=== PATIENT | female | born 1965 | race Two or more races ===

== ENCOUNTER 2018-10-22 08:57 | Emergency (ER) | payer OTHER ==
[~2018-10-22] VITALS: Ht 165.1 cm; Wt 56.7 kg
[~2018-10-22 08:57] MED LIST: LOVENOX40 MG/0.4 SQ; ORPH100T PO; PRENATAL1 TAB PO
[2018-10-22] MEDS ORDERED: SYNTHROID50 MCG (09:21)
[2018-10-22] MEDS ORDERED: MECLIZINE HCL25 MG PO (13:44)
== END 2018-10-22 14:09 | disposition home or self-care (01) ==
LOC: ER 08:57
DX: R11.11 Vomiting without nausea (principal); R42 Dizziness and giddiness

== ENCOUNTER 2019-02-24 08:51 | Outpatient (CLI) | payer OTHER ==
[~2019-02-24 08:51] MED LIST changes: +MECLIZINE HCL25 MG PO; +SYNTHROID50 MCG
== END 2019-02-24 08:53 | disposition home or self-care (01) ==
LOC: SONOGRAMA 08:51
DX: E04.1 Nontoxic single thyroid nodule (principal)

== ENCOUNTER 2019-08-18 08:19 | Emergency (ER) | payer OTHER ==
[~2019-08-18] VITALS: Ht 165.1 cm; Wt 59.9 kg
[2019-08-18] MEDS ORDERED: KETO10TA2 PO (10:46)
== END 2019-08-18 11:11 | disposition home or self-care (01) ==
LOC: ER 08:19
DX: S93.691A Other sprain of right foot, initial encounter (principal); X50.9XXA Other and unspecified overexertion or strenuous movements or postures, initial encounter; Y93.89 Activity, other specified; Y92.89 Other specified places as the place of occurrence of the external cause; Y99.8 Other external cause status

== ENCOUNTER 2021-10-21 07:42 | Emergency (ER) | payer OTHER ==
[~2021-10-21] VITALS: Ht 165.1 cm; Wt 59.0 kg
[~2021-10-21 07:42] MED LIST changes: +KETO10TA2 PO
[2021-10-21] MEDS ORDERED: SYNTHROID50 MCG (08:03)
[2021-10-21] MEDS ORDERED: SYNTHROID50 MCG PO ×3 (08:03→08:08)
== END 2021-10-21 10:54 | disposition home or self-care (01) ==
LOC: ER 07:42
DX: M25.561 Pain in right knee (principal); R60.0 Localized edema

== ENCOUNTER → 2021-10-23 | Outpatient (CLI) | payer OTHER ==
[~2021-10-23] MED LIST changes: +SYNTHROID50 MCG PO
== END | disposition home or self-care (01) ==
LOC: MRI 07:15
DX: S80.911A Unspecified superficial injury of right knee, initial encounter (principal)
CPT/HCPCS: 73718

== ENCOUNTER 2022-10-02 09:46 | Emergency (ER) | payer OTHER ==
[~2022-10-02] VITALS: Ht 162.6 cm; Wt 63.5 kg
== END 2022-10-02 10:21 | disposition home or self-care (01) ==
LOC: ER 09:46
DX: B86 Scabies (principal); R21 Rash and other nonspecific skin eruption

== ENCOUNTER 2023-09-10 05:17 | Emergency (ER) | payer OTHER ==
[~2023-09-10] VITALS: Ht 165.1 cm; Wt 68.0 kg
[~2023-09-10 05:17] MED LIST changes: +ANTIVERT25 M2 PO; +ZYRTEC10 MG PO
[2023-09-10] MEDS ORDERED: ORPHENADRINE CITRATE 30 MG/ML AMPUL ONE (08:52)
[2023-09-10] MEDS ORDERED: TRIAMCINOLONE ACETONIDE 40 MG/ML VIAL ONE (08:53)
[2023-09-10] MEDS ORDERED: TYLENOL ARTHRI650 MG PO (08:57)
[2023-09-10] MEDS ORDERED: TIZANIDINE HCL2 M1 PO (08:57)
[2023-09-10] MEDS ORDERED: ORPHENADRINE CITRATE 30 MG/ML AMPUL IM ONE (09:00)
[2023-09-10] MEDS ORDERED: TRIAMCINOLONE ACETONIDE 40 MG/ML VIAL IM ONE (09:00)
== END 2023-09-10 09:10 | disposition home or self-care (01) ==
LOC: ER 05:19
DX: S23.3XXA Sprain of ligaments of thoracic spine, initial encounter (principal); E03.8 Other specified hypothyroidism; D69.6 Thrombocytopenia, unspecified

== ENCOUNTER 2024-03-19 06:16 | Emergency (ER) | payer OTHER ==
[~2024-03-19] VITALS: Ht 165.1 cm; Wt 66.2 kg
[~2024-03-19 06:16] MED LIST changes: +TIZANIDINE HCL2 M1 PO; +TYLENOL ARTHRI650 MG PO
[2024-03-19] MEDS ORDERED: CLINDAMYCIN PHOSPHATE 150 MG/ML (600mg) IV ONE (08:45)
[2024-03-19] MEDS ORDERED: KETOROLAC TROMETHAMINE 30 MG VIAL IV ONE (08:45)
[2024-03-19] MEDS ORDERED: KETOROLAC TROMETHAMINE 60 MG VIAL IM ONE (09:07)
[2024-03-19] MEDS ORDERED: CLINDAMYCIN PHOSPHATE 150 MG/ML (900mg) ONE (09:07)
[2024-03-19 09:38] LABS: HEMATOCRIT 42.2 % (36.0-45.00); HEMOGLOBIN 14.2 g/dL (12.0-15.00); MEAN CELL VOLUME 86.8 fL (80.00-100.00); MEAN CORPUSCULAR HEMOGLOBIN 29.3 pg (27.00-32.0); MEAN CORPUSCULAR HGB CONC 33.8 g/dl (32.0-36.0); RED BLOOD COUNT 4.85 M/uL (4.00-6.00); RED CELL DISTRIBUTION WIDTH 15.1 % (11.5-14.5)
[2024-03-19 09:57] LABS: CALCIUM 9.7 mg/dL (8.5-10.1); CREATININE SERUM 0.58 mg/dL (0.55-1.02); GFR 107.54; POTASSIUM 4.29 mEq/L (3.5-5.1)
[2024-03-19 10:12] LABS: PLATELET COUNT 105 K/uL (150-450)
== END 2024-03-19 12:52 | disposition home or self-care (01) ==
LOC: ER 06:18
PROVIDERS: General Practice
DX: J36 Peritonsillar abscess (principal); H66.90 Otitis media, unspecified, unspecified ear
CPT/HCPCS: 36415; 70491; Q9965

== ENCOUNTER 2024-10-17 09:29 | Outpatient (CLI) | payer OTHER | END 2024-10-17 09:30 | disposition home or self-care (01) | LOC: SONOGRAMA 09:29 | PROVIDERS: ATTEND Pathology Anatomic Pathology | DX: D44.0 Neoplasm of uncertain behavior of thyroid gland (principal); E04.1 Nontoxic single thyroid nodule ==

== ENCOUNTER 2024-12-12 04:17 | Emergency (ER) | payer OTHER ==
[~2024-12-12] VITALS: Ht 165.1 cm; Wt 67.1 kg
[2024-12-12] MEDS ORDERED: KETOROLAC TROMETHAMINE 30 MG VIAL IV STA (04:45)
[2024-12-12] MEDS ORDERED: ONDANSETRON HCL 2 MG/ML VIAL IV STA (04:45)
[2024-12-12] MEDS ORDERED: 0.9 % SODIUM CHLORIDE 1,000 ML IV ONE (04:45)
[2024-12-12] MEDS ORDERED: ONDANSETRON HCL 2 MG/ML VIAL ONE (04:46)
[2024-12-12] MEDS ORDERED: KETOROLAC TROMETHAMINE 30 MG VIAL ONE (04:46)
[2024-12-12] MEDS ORDERED: DIATRIZOATE MEGLUMINE, SODIUM 30 ML BOTTLE ONE (05:00)
[2024-12-12 05:07] LABS: BASO % 0.3 % (0.1-1.2); EOS # 0.05 (0.04-0.54); EOS % 0.7 % (0.7-7.0); LYMPH # 1.55 (1.18-3.74); LYMPH % 22.6 % (19.3-53.1); MEAN PLATELET VOLUME 14.00 fl (9.4-12.4); MONO # 0.57 (0.24-0.82); MONO % 8.3 % (4.7-12.5); NEUT # 4.66 (1.56-6.13); NEUT % 68.0 % (34.0-71.1); RED CELL DISTRIBUTION WIDTH 14.6 % (11.6-14.4)
[2024-12-12 05:28] LABS: INR 1.09
[2024-12-12 05:33] LABS: ALT/SGPT 18.0 U/L (12-78); AST/SGOT 19.0 U/L (15-37); BILIRUBIN TOTAL 0.71 mg/dL (0.3-1.2); BUN CREA RATIO 25.0 (7.0-25.0); CREATININE SERUM 0.4 mg/dL (0.55-1.02); GFR 165.11; GLOBULINA 4.1 G/DL (2.4-3.5); GLUCOSE FASTING 106.0 mg/dL (65-100); OSMOLALITY SERUM 283.0 MOSM/KG (275-295)
[2024-12-12 06:38] LABS: URINE APPEARANCE Clear; URINE BILIRRUBIN Negative (NEGATIVE); URINE BLOOD Negative; URINE COLOR Yellow; URINE GLUCOSE Negative (NEGATIVE); URINE KETONE 15 (NEGATIVE); URINE LEUKOCYTE Small; URINE NITRATE Negative; URINE PROTEIN Negative (NEGATIVE); URINE UROBILINOGEN 1.0 E.U./dl
[2024-12-12 06:41] LABS: URINE BACTERIA 1138.6 uL (0.0-1933); URINE EPITHELIAL CELLS 22.9 uL (0.0-38.8); URINE RBC 13.7 uL (0.0-20.8); URINE WBC 23.5 uL (0.0-23.2)
[2024-12-12 06:50] LABS: URINE CAST 0.58 uL (0.0-1.40)
== END 2024-12-12 10:37 | disposition home or self-care (01) ==
LOC: ER 04:18
PROVIDERS: General Practice
DX: R10.31 Right lower quadrant pain (principal); E03.8 Other specified hypothyroidism